=== PATIENT | female | born 1955 | race Caucasian/White ===

== ENCOUNTER → 2017-12-18 | Outpatient (CLI) | payer OTHER ==
[~2017-12-18] MED LIST: CALC-1105 PO; FLUT1AER IH; GABA-531 PO; GLUC-206 PO; LOSA1TAB42 PO; MULT-1250 PO; VIT1CAPS46 PO
== END | disposition home or self-care (01) ==
LOC: SHCH 13:44
PROVIDERS: ATTEND Internal Medicine Cardiovascular Disease
DX: I10 Essential (primary) hypertension (principal)
CPT/HCPCS: 93306

== ENCOUNTER 2018-01-14 09:30 | Inpatient (IN) | payer OTHER ==
[~2018-01-14] VITALS: Ht 168.9 cm; Wt 126.1 kg
[2018-01-14 09:44] VITALS: BP 171/73
[2018-01-14 09:52] LABS: BASOPHILS % (AUTO) 0.5 % (0.0-5.0); EOSINOPHILS % (AUTO) 3.4 % (0.0-8.0); HEMATOCRIT 34.9 % (36-48); LYMPHOCYTES % (AUTO) 23.9 % (21.0-51.0); MEAN CORPUSCULAR HEMOGLOBIN 30.7 pg (27.0-33.0); MEAN CORPUSCULAR HGB CONC 34.5 g/dL (32.0-36.0); MONOCYTES % (AUTO) 6.6 % (3.0-13.0); NEUTROPHILS % (AUTO) 65.6 % (40.0-77.0); PLATELET COUNT (AUTO) 225 K/uL (130-400); RED BLOOD CELL COUNT(AUTO) 3.92 MIL/uL (4.00-5.50); RED CELL DISTRIBUTION WIDTH 13.4 % (11.0-15.5)
[2018-01-14 09:59] LABS: POTASSIUM 5.2 mmol/L (3.5-5.1)
[2018-01-14] MEDS ORDERED: FLUT1AER IH (10:04)
[2018-01-14] MEDS ORDERED: GLUC-206 PO (10:04)
[2018-01-14] MEDS ORDERED: GABA-531 PO (10:04)
[2018-01-14] MEDS ORDERED: MULT-1250 PO (10:04)
[2018-01-14] MEDS ORDERED: LOSA1TAB42 PO (10:04)
[2018-01-14] MEDS ORDERED: VIT1CAPS46 PO (10:04)
[2018-01-14] MEDS ORDERED: CALC-1105 PO (10:04)
[2018-01-14] MEDS ORDERED: CLINDAMYCIN 900 MG/D5% WATER 50 ML IV SCH (10:45)
[2018-01-16] VITALS (22 sets, daily range): BP systolic 98–176; BP diastolic 38–83
[2018-01-16] MEDS ORDERED: THROMBIN-JMI 20000 UNIT KIT TP ONE (06:26)
[2018-01-16] MEDS ORDERED: BACITRACIN 50,000 UNIT VIAL ONE ×2 (06:26→11:14)
[2018-01-16] MEDS ORDERED: DURAMORPH PF1 MG/ML 10ML AMP IV ONE (06:26)
[2018-01-16] MEDS ORDERED: LACTATED RINGERS 1000ML 1,000 ML IV ONE ×2 (06:30→14:48)
[2018-01-16] MEDS ORDERED: CLINDAMYCIN 900 MG/D5% WATER 50 ML IV ONE (06:30)
[2018-01-16] MEDS ORDERED: BUPIVACAINE/PF 0.25% 30ML VIAL IJ ONE (06:32)
[2018-01-16] MEDS ORDERED: EPINEPHRINE 1 MG/ML AMPULE ONE (06:33)
[2018-01-16] MEDS ORDERED: LIDOCAINE PF 2% 5ML ABBOJECT ONE (06:58)
[2018-01-16] MEDS ORDERED: SUCCINYLCHOLINE 200MG/10ML SYR ONE ×2 (06:58→10:52)
[2018-01-16] MEDS ORDERED: PROPOFOL 10 MG/ML 20ML VIAL IV ONE (06:58)
[2018-01-16] MEDS ORDERED: GLYCOPYRROLATE 0.2 MG/ML 5 ML VIAL ONE (06:58)
[2018-01-16] MEDS ORDERED: FENTANYL CITRATE PF 50 MCG/1 ML 2ML VIAL ONE ×5 (06:58→11:51)
[2018-01-16] MEDS ORDERED: ONDANSETRON HCL 4 MG/2 ML VIAL ONE ×2 (06:58→10:57)
[2018-01-16] MEDS ORDERED: DEXAMETHASONE SOD PHOSPHATE 10MG/ML 1ML VIAL ONE ×2 (06:58→10:57)
[2018-01-16] MEDS ORDERED: MIDAZOLAM HCL 1 MG/ML 2ML VIAL ONE ×2 (06:58→07:52)
[2018-01-16] MEDS ORDERED: ROCURONIUM BROMIDE 10MG/1ML 5ML VL ONE ×2 (08:27→10:52)
[2018-01-16] MEDS ORDERED: LIDOCAINE HCL 2% JELLY 5 ML ONE (10:57)
[2018-01-16] MEDS ORDERED: PHENYLEPHRINE HCL 10 MG/ML 1ML VIAL IV ONE (10:57)
[2018-01-16] MEDS ORDERED: SODIUM CHLORIDE 0.9% 10 ML VIAL ONE (12:44)
[2018-01-16] MEDS ORDERED: LACTATED RINGERS 1000ML 1,000 ML IV SCH (12:59)
[2018-01-16] MEDS ORDERED: PROMETHAZINE HCL 25 MG/ML 1ML AMPULE IM PRN (13:00)
[2018-01-16] MEDS ORDERED: SODIUM CHLORIDE 0.9% 10 ML VIAL IVP PRN (13:00)
[2018-01-16] MEDS ORDERED: HYDROCODONE/ACETAMINOPHEN 5/325 MG TAB PO PRN (13:00)
[2018-01-16] MEDS: DEXAMETHASONE SOD PHOSPHATE 4 MG/ML 1ML VIAL IVP SCH ×2 (15:11→18:23)
[2018-01-16] MEDS: CLINDAMYCIN 900 MG/D5% WATER 50 ML IV SCH ×2 (15:12→18:23)
[2018-01-16] MEDS: MORPHINE SULFATE 2 MG/ML 1ML SYG IVP PRN ×2 (15:14→20:23)
[2018-01-16] MEDS ORDERED: TRAMADOL HCL 50 MG TABLET PO PRN (16:30)
[2018-01-16] MEDS: BUDESONIDE 0.5 MG/2 ML INH IH SCH (19:11)
[2018-01-16] MEDS: ALBUTEROL SULFATE 0.083% 2.5 MG/3 ML INH IH SCH (19:11)
[2018-01-16] MEDS: VIT B6 PO SCH (20:32)
[2018-01-16] MEDS: B12 PO SCH (20:32)
[2018-01-16] MEDS: THFOLATE PO SCH (20:32)
[2018-01-16] MEDS: ALA PO SCH (20:32)
[2018-01-16] MEDS ORDERED: GABAPENTIN 300 MG CAPSULE PO SCH (21:00)
[2018-01-17] MEDS: ALBUTEROL SULFATE 0.083% 2.5 MG/3 ML INH IH SCH ×2 (00:35→06:51)
[2018-01-17] MEDS: CLINDAMYCIN 900 MG/D5% WATER 50 ML IV SCH ×2 (01:02→06:52)
[2018-01-17] MEDS: DEXAMETHASONE SOD PHOSPHATE 4 MG/ML 1ML VIAL IVP SCH ×2 (01:02→06:52)
[2018-01-17 04:54] VITALS: BP 118/55
[2018-01-17] MEDS: BUDESONIDE 0.5 MG/2 ML INH IH SCH (06:58)
[2018-01-17 07:53] VITALS: BP 116/52
[2018-01-17] MEDS: VIT B6 PO SCH (08:06)
[2018-01-17] MEDS: B12 PO SCH (08:06)
[2018-01-17] MEDS: THFOLATE PO SCH (08:06)
[2018-01-17] MEDS: ALA PO SCH (08:06)
[2018-01-17] MEDS ORDERED: GLUCOSAMINE PO SCH (09:00)
[2018-01-17] MEDS ORDERED: LOSARTAN 100 MG TABLET PO SCH (09:00)
[2018-01-17] MEDS ORDERED: CHONDROITIN A PO SCH (09:00)
[2018-01-17] MEDS ORDERED: MULTIVITAMIN WITH MINERALS TABLET PO SCH (09:00)
[2018-01-17] MEDS ORDERED: CALCIUM 600 + VITAMIN D 400 TABLET PO SCH (09:00)
[2018-01-17] MEDS ORDERED: HYDROCHLOROTHIAZIDE 25 MG TABLET PO SCH (09:00)
[2018-01-17] MEDS ORDERED: MSM PO SCH (09:00)
== END 2018-01-17 11:24 | disposition home or self-care (01) | DRG 516 ==
LOC: EDSTATUS 09:30 → DAHIP 01-16 06:02 → 4AH 01-16 13:43
PROVIDERS: ADMIT Neurological Surgery; ATTEND Neurological Surgery
PROC: 0SH304Z Insertion of Internal Fixation Device into Lumbosacral Joint, Open Approach (ICD-10-PCS; principal; 2018-01-16 07:50)
PROC: 01NB0ZZ Release Lumbar Nerve, Open Approach (ICD-10-PCS; 2018-01-16 07:50)
PROC: 01NR0ZZ Release Sacral Nerve, Open Approach (ICD-10-PCS; 2018-01-16 07:50)
PROC: 4A11X4G Monitoring of Peripheral Nervous Electrical Activity, Intraoperative, External Approach (ICD-10-PCS; 2018-01-16 07:50)
PROC: BR1B1ZZ Fluoroscopy of Lumbosacral Joint using Low Osmolar Contrast (ICD-10-PCS; 2018-01-16 07:50)
DX: M43.16 Spondylolisthesis, lumbar region (principal); Z68.41 Body mass index [BMI] 40.0-44.9, adult; E66.9 Obesity, unspecified; G47.30 Sleep apnea, unspecified; M48.061 Spinal stenosis, lumbar region without neurogenic claudication; Z28.21 Immunization not carried out because of patient refusal; Z88.6 Allergy status to analgesic agent; Z88.1 Allergy status to other antibiotic agents; Z88.8 Allergy status to other drugs, medicaments and biological substances; Z90.49 Acquired absence of other specified parts of digestive tract
CPT/HCPCS: 36415; 76000; 80051; 84132; 85025; 94640; 94664; A4344; J0171; J0330; J1100; J2001; J2250; J2274; J2370; J2405; J2550; J2704; J3010; J3490; J7120

== ENCOUNTER → 2018-02-15 | Outpatient (CLI) | payer OTHER | END | disposition home or self-care (01) | LOC: OIH 10:15 | PROVIDERS: ATTEND Neurological Surgery | DX: M43.26 Fusion of spine, lumbar region (principal); M47.896 Other spondylosis, lumbar region | CPT/HCPCS: 72100 ==

== ENCOUNTER → 2018-08-06 | Outpatient (CLI) | payer OTHER, MEDICARE | END | disposition home or self-care (01) | LOC: RAH 14:06 | PROVIDERS: ATTEND Physical Medicine & Rehabilitation | DX: M50.323 Other cervical disc degeneration at C6-C7 level (principal); M48.02 Spinal stenosis, cervical region; I10 Essential (primary) hypertension; E66.9 Obesity, unspecified | CPT/HCPCS: 72141 ==

== ENCOUNTER → 2018-10-07 | Outpatient (CLI) | payer MEDICARE | END | disposition home or self-care (01) | LOC: RAH 09:52 | PROVIDERS: ATTEND Internal Medicine Gastroenterology | DX: K21.9 Gastro-esophageal reflux disease without esophagitis (principal) | CPT/HCPCS: 74220 ==